=== PATIENT | female | born 1975 | race Hispanic/Latino ===

== ENCOUNTER 2017-10-01 16:08 | Inpatient (IN) | payer SELFPAY ==
[~2017-10-01 16:08] MED LIST: Glycopyrrolate 0.2 MG/ML 5 ML SYRINGE ONE; Lidocaine 1% PF 5 ML VIAL ONE; PHENYLEPHRINE-NS 100 MCG/ML 10 ML SYRINGE ONE; PROPOFOL 200 MG/20 ML VIAL ONE; Succinylcholine Chloride 20 MG/ML 10 ml SYRINGE FS ONE
[2017-10-01] MEDS ORDERED: Iopamidol 370 76% 50 ML VIAL FS ONE (16:41)
[2017-10-01] MEDS ORDERED: ISOVUE-370 76%-LOCM 1 ML ONE (16:41)
[2017-10-01 16:42] LABS: #Lymphocytes 2.1 thou/uL (1.20-3.40); #Monocytes 0.5 thou/uL (0.11-0.59); #Neutrophils 6.4 thou/uL (1.40-6.50); %Basophils 0.3 % (0.0-1.0); %Eosinophils 0.2 % (0.0-10.0); %Lymphocytes 23.4 % (21.0-51.0); %Monocytes 5.1 % (0.0-10.0); %Neutrophils 70.9 % (42.0-75.0); Mean Corpuscular HGB CONC 33.2 g/dL (32.0-36.0); Mean Corpuscular Hemoglobin 26.5 pg (27.0-31.0); Platelet Count 198 thou/uL (130-400); Red Blood Cell (RBC) Count 4.15 mill/uL (4.20-5.40)
[2017-10-01 16:48] LABS: BHCG - Serum Negative (NEGATIVE); Pregs Control Background? CLEAR/WHITE (CLR/WHITE); Pregs Control Bar Appear? YES (CONTROL BAR)
[2017-10-01 17:05] LABS: ALT (SGPT) 34 U/L (8-55); AST (SGOT) 18 U/L (5-34); Albumin 4.3 g/dL (3.5-5.0); Alkaline Phosphatase 122 U/L (40-150); Anion Gap 9 mmol/L (10-20); BUN (Urea Nitrogen) 9 mg/dL (7.0-18.7); Bilirubin, Total 0.8 mg/dL (0.2-1.2); Calc. Creatinine Clearance 0 mL/min (70-130); Calcium 9.7 mg/dL (7.8-10.44); Carbon Dioxide 28 mmol/L (22-29); Chloride 105 mmol/L (98-107); Estimated GFR-MDRD Greater than 90; Globulin 3.3 g/dL (2.4-3.5); Glucose 91 mg/dL (70-105); Lipase 16 U/L (8-78); Potassium 3.6 mmol/L (3.5-5.1); Protein, Total 7.6 g/dL (6.0-8.3); Sodium 138 mmol/L (136-145)
[2017-10-01 18:10] LABS: Bilirubin Negative (Negative); Blood, Urine Negative (Negative); Clarity CLOUDY (Clear); Glucose, Urine (Dipstick) Negative (Negative); Leukocyte Small (Negative); Nitrite Negative (Negative); Pregnancy Test - Urine (BHCG) Negative (Negative); Pregu Control Background? CLEAR/WHITE (CLR/WHITE); Pregu Control Bar Appear? YES (CONTROL BAR); Protein, Urine (Dipstick) Negative (Neg-Trace); Specific Gravity 1.025 (1.002-1.036); Specific Gravity, Urine 1.025 (1.002-1.036)
[2017-10-01 18:12] LABS: Bacteria/HPF 2+ HPF (None Seen)
[2017-10-01 18:13] LABS: Pathc Cast-AUWi Flag 3.48 (0-2.49)
[2017-10-01 18:20] LABS: RBC/HPF 0-3 HPF (0-3)
[2017-10-01 18:21] LABS: Crystals/HPF None Seen HPF (Negative); Other Casts/LPF None Seen LPF (0-3 Hyaline); Oval Fat Bodies/HPF None Seen HPF (None Seen); Renal Epithelial None Seen HPF (0-3); Transitional Epithelial NONE SEEN HPF (0-3); Trichomonas/HPF None Seen HPF (None Seen)
[2017-10-01] MEDS ORDERED: Ondansetron ODT 4 MG TAB ONE ×3 (19:11→19:51)
[2017-10-01] MEDS ORDERED: Fentanyl 100 MCG/2 ML VIAL ONE ×4 (19:11→22:06)
--- NOTE | 2017-10-01 20:03 | ULT ---
PELVIC ULTRASOUND: Comparison: None. History: Suprapubic abdominal/pelvic pain. Comparison: 10-17-02 Technique: Multiplanar grayscale and color doppler images were obtained in a transabdominal and trans vaginal pelvic ultrasound. Spectral analysis and doppler waveforms of the ovaries were performed. FINDINGS: The uterus contains multiple small hypoechoic regions measuring up to 1.5 cm in size which may repres ent small fibroids. The endometrial stripe is normal in thickness measuring 6 mm. No free fluid is seen in the pelvis. Neither ovary is visualized. IMPRESSION: Fibroid uterus. POS: [facility]
[2017-10-01] MEDS ORDERED: Morphine 4 MG/ML VIAL ONE (20:54)
[2017-10-01] MEDS ORDERED: Promethazine HCl 25 MG/ML VIAL ONE (20:54)
[2017-10-01] MEDS ORDERED: Lidocaine Viscous Sol 2% 15 ml UD Cup ONE (21:37)
[2017-10-01] MEDS ORDERED: Benzocaine 20% Spray 60 ML CAN ONE (21:37)
[2017-10-01] MEDS ORDERED: Bupivacaine/Epinephrine 0.25% 30 ML VIAL ONE (21:50)
[2017-10-01] MEDS ORDERED: Midazolam HCl 2 mg/2 ml Vial ONE (22:06)
[2017-10-01] MEDS ORDERED: MEROPENEM 1 GM/50 ML 1 GM in Premix Bag 1 BAG IVPB SCH (22:15)
[2017-10-01] MEDS ORDERED: Promethazine HCl 25 MG/ML VIAL SLOW IVP PRN (22:42)
[2017-10-01] MEDS ORDERED: Ondansetron HCl/PF 4 MG/2 ML Vial IVP PRN (22:42)
[2017-10-01] MEDS ORDERED: Promethazine HCl 25 MG/ML VIAL IM PRN (22:42)
--- NOTE | 2017-10-01 22:44 | CT ---
CT ABDOMEN AND PELVIS WITH CONTRAST: Comparison: Suprapubic abdominal and pelvic pain. Technique: Multiple contiguous axial images were obtained in a CT of the abdomen and pelvis with cont rast. PO contrast was administered. Coronal reformats were performed. FINDINGS: The liver, gallbladder, kidneys, adrenal glands, spleen, and pancreas are unremarkable. There are str anding changes in the right lower quadrant of the abdomen. There is a blind ending structure measurin g 1.1 cm in width which appears to extend from the cecum towards the reproductive organs. This is not filled with contrast as is the cecum and terminal ileum and likely represents an enlarged appendix. The small bowel and remainder of the colon are unremarkable. No abdominal or pelvic lymphadenopathy a re seen. Reproductive organs are grossly unremarkable. Degenerative changes are seen in the spine. Visualized inferior thorax soft tissues are unremarkable. There is 2.0 cm fat containing umbilical hernia. IMPRESSION: 1. Findings are evidence for acute appendicitis. Dr. Angel notified of the findings at 9:29 p.m. on 10-01-17. 2. Fat containing umbilical hernia. POS: [facility]
[2017-10-02] MEDS ORDERED: SUGAMMADEX SODIUM 500 MG/5 ML VIAL ONE (00:06)
--- NOTE | 2017-10-02 00:10 | HP ---
CHIEF COMPLAINT: Abdominal pain. HISTORY: Ms. Bianchi is a 42-year-old woman who presented to the emergency room with abdominal pain since 3:00 yesterday afternoon, who came on fairly suddenly and has been unrelenting since its onset . She has had nausea and vomiting associated with her pain, it hurts to move. She was able to go to religious today, but within a lot of pain throughout, so came into the emergency room afterward. She h as had chronic pelvic pain ever since a post- bleeding episode, which was quite severe. She debi has an appointment next month to see a brand strategy manager for this. At first, she thought it was th is type of pain, but it was more severe and involved her entire abdomen, which is different. She pelayo s have fairly heavy periods. PAST MEDICAL HISTORY: Migraines. PAST SURGICAL HISTORY: Tubal ligation. FAMILY HISTORY: None. SOCIAL HISTORY: She is here with her . She is Estonian speaking only, but her speaks Cymraes and she has designated him to sign paperwork for her. She does not smoke, drink, or use illi cit drugs. REVIEW OF SYSTEMS: Ten-system review of systems is negative except per HPI. PHYSICAL EXAMINATION: VITAL SIGNS: She is afebrile with normal vital signs. GENERAL: Reveals an acutely ill-appearing woman who is holding very still in bed and sitting upright due to nausea. HEENT: Unremarkable except for diaphoresis. NECK: Supple without lymphadenopathy or thyroid masses. HEART: Regular in its rate and rhythm without murmurs, rubs, or gallops. LUNGS: Clear to auscultation bilaterally. ABDOMEN: Slightly distended. She has an umbilical hernia and is extremely tender to palpation in th e right lower quadrant greater than the rest of the abdomen. EXTREMITIES: Warm and well perfused without edema. NEUROLOGIC: No focal deficits. PSYCHIATRIC: Alert, oriented, and appropriate, responding to questions and answering questions using a Estonian hearing therapist. LABORATORY DATA AND X-RAY FINDINGS: Her white count is normal and electrolytes are unremarkable. LF Ts are okay. CT images are reviewed and I agreed with the verbal report from the radiologist. Her a ppendix is enlarged and inflamed with periappendiceal stranding consistent with acute appendicitis. No obvious gynecologic abnormalities are noted on my read and none reported to the ER physician. ASSESSMENT: Acute appendicitis. PLAN: Laparoscopic appendectomy. The patient's diagnosis and recommended treatment were discussed w ith her and her using a Estonian hearing therapist. Since she also has an umbilical hernia , I will plan on repairing not with sutures alone, as it will be at one of my port sites. Given her longstanding pelvic pain, we will examine the uterus and ovaries and if there any gross abnormalities , we will do an intraoperative gynecologic consult that I explained to both the patient and her husba nd, but I do not think that her appendicitis is responsible for her chronic pelvic pain or has anythi ng to do with her pelvic pain or heavy menstrual bleeding. The inherent risks of laparoscopic append ectomy were discussed with the patient and her . These include but are not limited to bleedin g, infection, risks of anesthesia, damage to nearby structures including intestine and blood vessels, need for open operation and need for a drain if perforation is found. They understood and accept th luz risks and wish to proceed. Antibiotics have been ordered on-call to the OR and she has been post ed emergently for the OR.
[2017-10-02] MEDS ORDERED: Fentanyl 100 MCG/2 ML VIAL ONE (00:51)
[2017-10-02] MEDS ORDERED: Morphine 4 MG/ML VIAL SLOW IVP PRN ×2 (02:14→02:15)
[2017-10-02] MEDS ORDERED: Acetaminophen 1,000 MG in Premix Bag 1 BAG IVPB PRN (02:16)
[2017-10-02] MEDS ORDERED: Promethazine 25 MG TAB PO PRN (02:17)
[2017-10-02] MEDS ORDERED: Ondansetron HCl/PF 4 MG/2 ML Vial SLOW IVP PRN (02:18)
[2017-10-02] MEDS ORDERED: Promethazine HCl 25 MG/ML VIAL SLOW IVP PRN (02:18)
[2017-10-02] MEDS: D5 1/2 NS w/20 mEq KCL 1,000 ML IV SCH ×4 (02:55→22:05)
[2017-10-02] MEDS: HYDROcodone/Acetaminophen 7.5/325 mg Tablet PO PRN ×5 (02:56→22:13)
[2017-10-02 03:24] VITALS: BMI 33.3
[2017-10-02 04:33] LABS: #Lymphocytes 1.4 thou/uL (1.20-3.40); #Monocytes 0.3 thou/uL (0.11-0.59); #Neutrophils 6.3 thou/uL (1.40-6.50); %Eosinophils 0.2 % (0.0-10.0); %Lymphocytes 17.7 % (21.0-51.0); %Monocytes 3.4 % (0.0-10.0); %Neutrophils 78.6 % (42.0-75.0); Hemoglobin 9.4 g/dL (12.0-16.0); Mean Corpuscular HGB CONC 33.5 g/dL (32.0-36.0); Mean Corpuscular Hemoglobin 26.9 pg (27.0-31.0); Mean Corpuscular Volume 80.4 fl (81.0-99.0); Mean Platelet Volume 9.1 fL (7.4-10.4); Platelet Count 174 thou/uL (130-400); RBC Distribution Width 14.3 % (11.5-14.5); White Blood Cell (WBC) Count 8.1 thou/uL (4.8-10.8)
[2017-10-02 04:57] LABS: Anion Gap 8 mmol/L (10-20); BUN (Urea Nitrogen) 5 mg/dL (7.0-18.7); Calc. Creatinine Clearance 137 mL/min (70-130); Calcium 8.3 mg/dL (7.8-10.44); Carbon Dioxide 26 mmol/L (22-29); Chloride 109 mmol/L (98-107); Estimated GFR-MDRD Greater than 90; Glucose 129 mg/dL (70-105); Potassium 3.7 mmol/L (3.5-5.1); Sodium 139 mmol/L (136-145)
[2017-10-02] MEDS: MEROPENEM 1 GM/50 ML 1 GM in Premix Bag 1 BAG IVPB SCH ×2 (06:28→14:50)
--- NOTE | 2017-10-02 17:26 | PDOC.GSPN ---
Surgery Progress Note: Subj - Subjective Narrative: Patient is still having a lot of pain today. She made it out of bed to chair this morning and has passed gas once. She tolerated clears for breakfast and full supportive been ordered for lunch. She requires a lot of assistance to move. Afebrile normal vital signs. Incisions are clean dry and intact. Abdomen is still distended and bowel sounds are diminished. Gram stain of peritoneal fluid was negative. Assessment/plan: Status post laparoscopic appendectomy. No perforation noted, so we will stop antibiotics after 24 hours. The patient is still having a lot of problems with pain control and mobility so will likely require another day of inpatient management. Anticipate discharge home tomorrow. Surgery Progress Note: Obj - Vital signs Vital signs: Vital Signs - Most Recent Temp Pulse Resp BP Pulse Ox 97.5 F L 72 18 99/55 L 100 10/02/17 11:59 10/02/17 11:59 10/02/17 11:59 10/02/17 11:59 10/02/17 11:59 Surgery Progress Note: Results - Labs Result Diagrams: 10/02/17 04:16 10/02/17 04:16
[2017-10-03] MEDS: HYDROcodone/Acetaminophen 7.5/325 mg Tablet PO PRN ×2 (05:08→11:16)
[2017-10-03] MEDS: D5 1/2 NS w/20 mEq KCL 1,000 ML IV SCH (05:56)
[2017-10-03 09:02] LABS: #Eosinphils 0.2 thou/uL (0.0-0.7); #Lymphocytes 2.4 thou/uL (1.20-3.40); #Monocytes 0.4 thou/uL (0.11-0.59); #Neutrophils 3.2 thou/uL (1.40-6.50); %Basophils 0.4 % (0.0-1.0); %Eosinophils 3.1 % (0.0-10.0); %Lymphocytes 38.5 % (21.0-51.0); %Monocytes 6.1 % (0.0-10.0); Hemoglobin 9.6 g/dL (12.0-16.0); Mean Corpuscular HGB CONC 32.5 g/dL (32.0-36.0); Mean Corpuscular Hemoglobin 26.7 pg (27.0-31.0); Mean Corpuscular Volume 82.2 fl (81.0-99.0); Mean Platelet Volume 8.8 fL (7.4-10.4); Platelet Count 181 thou/uL (130-400); RBC Distribution Width 14.4 % (11.5-14.5); Red Blood Cell (RBC) Count 3.59 mill/uL (4.20-5.40); White Blood Cell (WBC) Count 6.2 thou/uL (4.8-10.8)
[2017-10-03] MEDS ORDERED: Bisacodyl 10 MG SUPP PR SCH (14:15)
[2017-10-03] MEDS ORDERED: traMADol HCl 50 MG TAB PO PRN (14:15)
[2017-10-03] MEDS ORDERED: Acetaminophen 325 MG TAB PO SCH (14:30)
[2017-10-03] MEDS ORDERED: Polyethylene Glycol 3350 17 GM Packet PO SCH (14:30)
--- NOTE | 2017-10-03 14:57 | PDOC.GSPN ---
Surgery Progress Note: Subj - Subjective Narrative: Patient complains of intermittent dizziness. She also has a headache. She is passing gas but hasn't had a bowel movement yet. She is not nauseated and has been tolerating her diet but does feel distended. Afebrile. Her heart rate was 102 this morning but has gone back down into the 70s now; her H&H are stable although low and her white count is normal. No growth on culture. Abdomen is soft but still slightly distended. She has normal bowel sounds and her incisions are clean dry and intact. Assessment/plan: Status post laparoscopic appendectomy doing better overall. She is more mobile today although still requiring some assistance and encouragement. She hasn't had a bowel movement yet but is passing gas normally and tolerating her diet. I ordered some MiraLAX and Dulcolax for her. Her has to run some errands so we will wait for him to return before discharging her home. The dizziness she is describing seems orthostatic, although the nurses report that they checked her vital signs and they have been normal. She has some baseline anemia due to her menorrhagia so it is probably a combination of that plus pain medications and her postoperative state. I encouraged her to start taking a multivitamin, and to add iron once her bowel movements are back to normal. She already has an appointment with her chair mechanic next week. She was found to have fibroids intraoperatively. Surgery Progress Note: Obj - Vital signs Vital signs: Vital Signs - Most Recent Temp Pulse Resp BP Pulse Ox 98.5 F 74 16 110/68 99 10/03/17 11:12 10/03/17 11:12 10/03/17 11:12 10/03/17 11:12 10/03/17 11:12 Surgery Progress Note: Results - Labs Result Diagrams: 10/03/17 08:37 10/02/17 04:16 Lab results: Laboratory Results - last 24 hr 10/03/17 08:37 WBC 6.2 RBC 3.59 L Hgb 9.6 L Hct 29.5 L MCV 82.2 MCH 26.7 L MCHC 32.5 RDW 14.4 Plt Count 181 MPV 8.8 Neutrophils % 52.0 Lymphocytes % 38.5 Monocytes % 6.1 Eosinophils % 3.1 Basophils % 0.4 Neutrophils # 3.2 Lymphocytes # 2.4 Monocytes # 0.4 Eosinophils # 0.2 Basophils # 0.0
[2017-10-03] MEDS: traMADol HCl 50 MG TAB PO PRN ×2 (15:28→18:56)
[2017-10-04 00:57] LABS: Chlamydia by PCR Not Detected (NotDetected); GC by PCR Not Detected (NotDetected)
[2017-10-04] MEDS ORDERED: Polyethylene Glycol 3350 17 GM Packet PO SCH (09:00)
[2017-10-04 09:49] LABS: #Eosinphils 0.1 thou/uL (0.0-0.7); #Monocytes 0.4 thou/uL (0.11-0.59); #Neutrophils 3.5 thou/uL (1.40-6.50); %Basophils 0.1 % (0.0-1.0); %Lymphocytes 32.9 % (21.0-51.0); %Neutrophils 58.1 % (42.0-75.0); Hemoglobin 10.4 g/dL (12.0-16.0); Mean Corpuscular HGB CONC 32.2 g/dL (32.0-36.0); Mean Corpuscular Hemoglobin 26.6 pg (27.0-31.0); Mean Corpuscular Volume 82.5 fl (81.0-99.0); Mean Platelet Volume 8.9 fL (7.4-10.4); Platelet Count 216 thou/uL (130-400); RBC Distribution Width 14.4 % (11.5-14.5); Red Blood Cell (RBC) Count 3.92 mill/uL (4.20-5.40)
[2017-10-04 09:59] LABS: Anion Gap 10 mmol/L (10-20); BUN (Urea Nitrogen) 9 mg/dL (7.0-18.7); Calc. Creatinine Clearance 133 mL/min (70-130); Calcium 9.6 mg/dL (7.8-10.44); Carbon Dioxide 29 mmol/L (22-29); Chloride 102 mmol/L (98-107); Estimated GFR-MDRD Greater than 90; Glucose 106 mg/dL (70-105); Potassium 3.6 mmol/L (3.5-5.1); Sodium 137 mmol/L (136-145)
[2017-10-04 11:31] VITALS: BP 117/73; TEMP 98.1
[2017-10-04] MEDS: HYDROcodone/Acetaminophen 7.5/325 mg Tablet PO PRN (12:32)
--- NOTE | 2017-10-06 10:59 | PDOC.OP ---
Operative Note - Operative Note Operative Note: PROCEDURE: Laparoscopic appendectomy, repair of incarcerated umbilical hernia, resection of left fallopian cyst SURGEON: Sheridan Guillen M.D. DATE OF PROCEDURE: 10/01/2017 PREOPERATIVE DIAGNOSIS: Appendicitis POSTOPERATIVE DIAGNOSIS: Appendicitis HISTORY: Patient is a 42-year-old woman with a long-standing history of heavy menstrual bleeding and pelvic pain. She presented with acute onset of severe abdominal pain in the lower abdomen and was found on CT scan to have acute appendicitis. Recommendation was made to proceed to the operating room for laparoscopic appendectomy. Due to her history of long-standing pelvic pain, the plan was also made to examine the pelvis laparoscopically and consult gynecology intraoperatively if any significant abnormalities were identified. FINDINGS: Acutely inflamed appendix without perforation. Small amount of cloudy fluid in the periappendiceal area which was negative on Gram stain. Fibroid uterus. No significant pelvic adhesions. Normal appearing ovaries bilaterally. Pedunculated left fallopian cyst which was excised, as well as another small left fallopian cyst which was not pedunculated and which was left. DESCRIPTION OF PROCEDURE: After informed consent was obtained and appropriate antibiotics continued, the patient was taken to the operating room and placed in the supine position and general endotracheal anesthesia was administered. The bladder was decompressed with a Camacho catheter and the abdomen was prepped and draped in the standard sterile fashion. Local anesthesia was infused to the skin and subcutaneous tissues superior to the umbilicus. A transverse skin incision was made and dissection carried down to the hernia sac which was dissected free circumferentially down to the level of the fascia. The hernia sac was opened and incarcerated omentum encountered. Part of this was able to be reduced into the abdominal cavity but part of it was fibrotic from chronic incarceration and had to be excised. Some adhesions between the omentum and the hernia sac superiorly were also taken down following which the remainder of the omentum was able to be reduced into the abdominal cavity. A 12 mm trocar was placed through the hernia defect and carbon dioxide insufflated into the abdominal cavity. Opening pressure was less than 5. Carbon dioxide gas was insufflated to an intra-abdominal pressure 15 and the patient tolerated this well. The omentum was hemostatic and there is no evidence of trocar injury. Two additional ports were placed in the suprapubic and left lateral abdomen under direct laparoscopic vision after local anesthesia was infused at these sites. There was some slightly cloudy appearing fluid in the pelvis and pericolic gutter which was suctioned out and sent for Gram stain and culture. The terminal ileum was then rotated medially and the base of the appendix identified. This was traced inferiorly down into the pelvis and the entire appendix was able to be elevated up out of the pelvis. The appendix appeared inflamed but not perforated. The appendix was grasped by the mesoappendix and elevated. The mesoappendix was then sequentially ligated and divided down to the base of the appendix, which was normal in appearance and was clearly seen to be at the confluence of the tenia. Two Endoloops were placed around the base of the appendix and the appendix was divided between these Endoloops. The appendix was then placed into an EndoCatch bag and drawn out through the umbilical incision. The trocar was then replaced and the operative site was easily irrigated to clear. Attention was then turned to the pelvis. The small intestine easily elevated out of the pelvis as did the sigmoid. There were no significant adhesions related to her previous tubal ligation. The uterus was noted to be enlarged consistent with fibroids. Both ovaries were normal. The fallopian tube on the right was normal but on the left there were 2 cysts. One was pedunculated and was felt to be at risk for torsion so this was excised and removed. The other one was adherent to the fimbria and was not felt to be a risk for torsion so this was left in place. The suprapubic and left lateral trocars were then removed and hemostasis verified. Carbon dioxide gas was desufflated through the umbilical trocar which was then removed. The fascia at the umbilicus was closed under direct vision using [id number] 0 Vicryl suture with excellent technical result. The skin incisions were irrigated and additional local anesthesia infused at each site. The subcutaneous tissues at the umbilicus were reapproximated with 3-0 Monocryl sutures and the skin closed with 4-0 Monocryl sutures. The skin at the other trocar sites was closed with 4- 0 subcuticular Monocryl sutures and Dermabond dressings were placed. Once the Dermabond was dry a pressure dressing was placed at the umbilicus. The patient was extubated and taken to the recovery room in good condition. Estimated blood loss was minimal. There were no complications. SPECIMEN: Appendix and the left fallopian cyst.
== END 2017-10-04 14:10 | disposition home or self-care (01) | DRG 342 ==
LOC: ERS 16:08 → SURG A 22:28 → SDC/OP 22:35 → SURG A 10-02 00:35
PROVIDERS: ADMIT Surgery; ATTEND Surgery
PROC: 0DTJ4ZZ Resection of Appendix, Percutaneous Endoscopic Approach (ICD-10-PCS; principal; 2017-10-01)
PROC: 0WQF4ZZ Repair Abdominal Wall, Percutaneous Endoscopic Approach (ICD-10-PCS; 2017-10-01)
PROC: 0UB64ZZ Excision of Left Fallopian Tube, Percutaneous Endoscopic Approach (ICD-10-PCS; 2017-10-01)
DX: K35.80 Unspecified acute appendicitis (principal); K42.0 Umbilical hernia with obstruction, without gangrene; N83.8 Other noninflammatory disorders of ovary, fallopian tube and broad ligament; D25.9 Leiomyoma of uterus, unspecified
CPT/HCPCS: 36415; 74177; 76856; 80048; 80053; 81003; 81015; 81025; 83690; 84703; 85025; 87070; 87086; 87205; 87480; 87491; 87510; 87591; 87660; 88304; 96361; 96365; 96375; 96376; J0131; J2001; J2185; J2250; J2270; J2550; J2704; J3010; Q0162

== ENCOUNTER 2020-01-20 02:26 | Emergency (ER) | payer OTHER, SELFPAY ==
[2020-01-20] MEDS ORDERED: Morphine 4 MG/ML VIAL ONE (02:46)
[2020-01-20 03:00] LABS: #Eosinphils 0.1 thou/uL (0.0-0.7); #Lymphocytes 2.9 thou/uL (1.20-3.40); #Monocytes 0.5 thou/uL (0.11-0.59); #Neutrophils 2.4 thou/uL (1.40-6.50); %Basophils 0.6 % (0.0-1.0); %Eosinophils 2.3 % (0.0-10.0); %Lymphocytes 48.3 % (21.0-51.0); %Monocytes 7.6 % (0.0-10.0); %Neutrophils 41.3 % (42.0-75.0); Hemoglobin 12.6 g/dL (12.0-16.0); Mean Corpuscular HGB CONC 33.8 g/dL (32.0-36.0); Mean Corpuscular Hemoglobin 29.1 pg (27.0-31.0); Mean Corpuscular Volume 85.9 fL (78.0-98.0); Mean Platelet Volume 9.7 fL (7.4-10.4); Platelet Count 198 thou/uL (130-400); RBC Distribution Width 14.1 % (11.5-14.5); Red Blood Cell (RBC) Count 4.33 mill/uL (4.20-5.40); White Blood Cell (WBC) Count 5.9 thou/uL (4.8-10.8)
[2020-01-20 03:13] LABS: BHCG - Serum Negative (NEGATIVE); Pregs Control Background? CLEAR/WHITE (CLR/WHITE); Pregs Control Bar Appear? YES (CONTROL BAR)
[2020-01-20 03:17] LABS: ALT (SGPT) 34 U/L (8-55); AST (SGOT) 25 U/L (5-34); Albumin 4.4 g/dL (3.5-5.0); Alkaline Phosphatase 132 U/L (40-110); Anion Gap 11 mmol/L (10-20); BUN (Urea Nitrogen) 12 mg/dL (7.0-18.7); Bilirubin, Total 0.4 mg/dL (0.2-1.2); Calc. Creatinine Clearance 0 mL/min (70-130); Calcium 9.8 mg/dL (7.8-10.44); Carbon Dioxide 26 mmol/L (22-29); Chloride 105 mmol/L (98-107); Estimated GFR-MDRD Greater than 90; Globulin 3.9 g/dL (2.4-3.5); Glucose 115 mg/dL (70-105); Lipase 44 U/L (8-78); Protein, Total 8.3 g/dL (6.0-8.3); Sodium 138 mmol/L (136-145)
[2020-01-20] MEDS ORDERED: Acetaminophen 500 MG TAB ONE (03:20)
[2020-01-20] MEDS ORDERED: Ketorolac Tromethamine 30 MG/ML VIAL ONE (03:20)
[2020-01-20] MEDS ORDERED: Lorazepam 2 MG/ML VIAL ONE (03:58)
[2020-01-20 04:48] LABS: Troponin I Less than 0.010 ng/mL (< 0.028)
--- NOTE | 2020-01-20 08:34 | CT ---
PRELIMINARY REPORT/[facility]/EMERGENCY AFTER HOURS PROCEDURE: EXAM: CTA Chest and CTA Abdomen, with Contrast DATE/ TIME: 01/20/2020, 3:05 AM INDICATION: Severe back pain radiating into chest TECHNIQUE: Helical CT was performed through the chest and abdomen during the rapid intravenous admin istration of 100 mL Isovue-370 utilizing angiographic protocol. The data set was postprocessed with multiplanar MIPs generated. Exam was performed using one or more of the following dose reduction camacho hniques: automated exposure control, adjustment of the mA and/or kV according to patient size, or us e of iterative reconstruction technique. COMPARISON: None. CTA CHEST and CTA ABDOMEN FINDINGS: The heart is borderline enlarged. The thoracic and abdominal ao rta shows no aneurysm or dissection with minimal atherosclerotic plaquing in the infrarenal portion. Branch vessels are normal in appearance. There is no pulmonary embolism, as visualized. Aortic ter minus and common iliac arteries are normal. There is no retroperitoneal hemorrhage. OTHER FINDINGS: The lungs are without infiltrate or mass. There is no pleural effusion. Gallbladde r is mildly distended with its wall appearing somewhat thickened. Liver has a coarse parenchymal pat tern and is hypoattenuated consistent with fatty infiltration. Liver measures 18.3 cm longitudinally . Spleen, pancreas, adrenal glands and kidneys enhance normally. There is no upper abdominal ascite s. Visualized intestinal tract is normal. There is a large amount of intra-abdominal and extra-abdo riki adipose tissue. Osseous structures are unremarkable. IMPRESSION: 1. There is no aortic aneurysm or dissection. No pulmonary embolus. 2. Findings of the gallbladder which could reflect acute cholecystitis. Gallbladder ultrasound is s uggested for further assessment. 3. Hepatomegaly. Hepatosteatosis. ELECTRONICALLY SIGNED BY: Mauri Curry DO Jan 20, 2020 3:25:07 AM CDT This report is intended for review by the ordering physician only, in accordance of law. If you recei ve this report in error, please call [facility] at [phone]. FINAL REPORT EMERGENCY AFTER HOURS EXAM CT ANGIOGRAM CHEST WITH 3D RENDERING CT ANGIOGRAM ABDOMEN WITH 3D RENDERING: DATE: 01/20/2020 TIME: 0305 hours IMPRESSION: Borderline size liver with some low attenuation possibly representing some fatty change. Some indisti nction of the gallbladder wall, but this may just be related to motion artifact. If there is concern for acute cholecystitis, a follow-up ultrasound study might be of benefit. No evidence for aortic ane urysm or dissection. Some atherosclerotic calcified and noncalcified plaque is noted. Fat-containing periumbilical hernia. This report is in agreement with preliminary report by [facility]. POS: [facility]
--- NOTE | 2020-01-20 09:10 | RAD ---
LEFT SHOULDER RADIOGRAPHS 3 VIEWS: DATE: 01/20/2020. PROVIDED CLINICAL HISTORY: Back pain. FINDINGS: There is no evidence for a fracture or other acute osseous abnormality. If there is persistent clini sandor concern, conservative management and followup imaging are advised. IMPRESSION: As above. POS: [facility]
[2020-01-20] MEDS ORDERED: Iopamidol-370 76% 500 ML 1 ML ONE (11:48)
== END 2020-01-20 05:23 | disposition home or self-care (01) ==
LOC: ERS 02:26
DX: R07.89 Other chest pain (principal); K76.0 Fatty (change of) liver, not elsewhere classified; R16.0 Hepatomegaly, not elsewhere classified; M54.6 Pain in thoracic spine
CPT/HCPCS: 36415; 71275; 72191; 74175; 80053; 83690; 84484; 84703; 85025; 93005; 96374; 96375; J1885; J2060; J2270; Q9967